=== PATIENT | female | born 1965 | race Caucasian/White ===

== ENCOUNTER 2017-01-03 23:00 | Observation (INO) | payer OTHER ==
--- NOTE | ~2017-01-03 | HP ---
History And Physical [facility] [address] [place]. [address] NAME: EMPERATRIZ BUENROSTRO : 67 STATUS : REG ER PAT#: [id number] AGE: 51 ADM/REG DATE : 01/03/17 MR#: [id number] REPORT SERV DATE: 01/04/17 DICTATED BY: CHEN GOMEZ DATE: 01/04/17 REPORT STATUS : Draft TRANSCRIBED BY: MODMerlyn DATE: 01/04/17 DATE OF ADMISSION: 01/03/2017 POINT OF ENTRY: [facility] Emergency Department. CHIEF COMPLAINT: Double vision. HISTORY OF PRESENT ILLNESS: Ms Buenrostro is a 51-year-old female with a history of morbid obesity, hypertension, hyperlipidemia, pxr-svqdxac-jqqavlqpc diabetes mellitus type 2 as well as obstructive sleep apnea and obesity hypoventilation syndrome on BiPAP therapy, who presents to the emergency department today with acute onset of blurry vision and diplopia. The patient states she was in her usual state of health until today when all day she felt cold, but there were no other specific complaints including fevers, night sweats, or chills. Her sensation of coldness resolved as the day progressed, and she had been out to [employer] shopping with her family members. Upon exiting [employer] at approximately 8:30 to 9:00 p.m., she noted the acute onset of blurry vision specifically diplopia. The patient states that she has very blurry vision with objects that are very close, the further away the object is the more defined it becomes and there are always two images of each object. This complaint remain the same whether or not she is using binocular vision or monocular vision of either left or right. Upward and downward gaze, lateral gaze does not seem to change her symptoms. The patient has no other neurologic symptoms including dysarthria, dysphagia, facial droop, weakness, numbness or tingling of her extremities. Initial evaluation in the emergency department is notable for a CT scan of the brain that was unremarkable, but was somewhat limited by the patient motion. Labs otherwise unremarkable. EKG and chest x-ray were clear. She was subsequently admitted to the Hospitalist Service for further evaluation and management. The patient denies any troubles with diplopia or blurry vision in the past. She recently saw an electronic lab technician and is being fitted for corrective lenses, but other than having some mild impaired visual acuity reportedly the vision exam was reportedly unremarkable. She denies any other previous complaints such as fevers, night sweats, chills, cough, sputum production, shortness of breath, chest pain, abdominal pain, nausea, vomiting, diarrhea, constipation, dysuria, lower extremity edema, melena, hematochezia, or hemoptysis. REVIEW OF SYSTEMS: Comprehensive review of systems otherwise negative unless listed in history of present illness. PREVIOUS MEDICAL HISTORY: 1. Morbid obesity. 2. Obesity hypoventilation syndrome and obstructive sleep apnea, on nocturnal BiPAP therapy. 3. Hypertension. History And Physical [address] [place]. [address] NAME: EMPERATRIZ BUENROSTRO : 67 STATUS : REG ER PAT#: [id number] AGE: 51 ADM/REG DATE : 01/03/17 MR#: [id number] REPORT SERV DATE: 01/04/17 DICTATED BY: CHEN GOMEZ DATE: 01/04/17 REPORT STATUS : Draft TRANSCRIBED BY: VALDEMAR DATE: 01/04/17 4. Hyperlipidemia. 5. Xjg-ynphxip-qvydbpxbv diabetes mellitus type 2. 6. Diverticulosis. 7. Congenital malignant teratoma status post resection. 8. Osteoarthritis. 9. Psoriasis. 10.Nonobstructive coronary artery disease. 11.Chronic diastolic congestive heart failure. 12.Chronic hypoxic respiratory failure. SURGICAL HISTORY: 1. Left upper lobe lobectomy for teratoma resection. 2. Tubal ligation. 3. Appendectomy. 4. Bladder repair. 5. Uterine cystectomy. 6. Umbilical hernia repair x2. 7. Rectocele repair. ALLERGIES: NO KNOWN DRUG ALLERGIES. HOME MEDICATIONS: Pending at the time of dictation. SOCIAL HISTORY: Denies any tobacco, alcohol, or illicits. She is currently on disability. FAMILY MEDICAL HISTORY: Mother with coronary artery disease, diabetes, hypertension. Father with coronary artery disease, diabetes, hypertension. Siblings with coronary artery disease. LABS AND IMAGIN. White count 6.9, hemoglobin 14.1, hematocrit 44.1, and platelet count 282. INR 1.1. 2. Sodium is 142, potassium 3.9, chloride 108, carbon dioxide 25, BUN 29, creatinine 0.70, glucose is 140, calcium is 9.0, protein is 7.5, albumin is 3.3, bilirubin is 0.3, ALT is 41, AST 19, and alkaline phosphatase is 151. 3. EKG per my review shows normal sinus rhythm with no evidence of any acute ischemia or infarction. 4. Chest x-ray per my review shows an exam limited by the patient's body habitus, but otherwise no acute cardiopulmonary abnormality. 5. CT scan of the brain is negative, but evaluation of the posterior fossa limited by the patient's motion. PHYSICAL EXAMINATION: VITAL SIGNS: Temperature is 97.2 degrees Fahrenheit, pulse is 94, respirations 16, saturating 95% on room air, and blood pressure 170/79. On recheck, blood pressure is now 130/60, pulse of 88, and saturating 98% on room air. GENERAL: The patient is awake and alert. She is a morbidly obese female in no acute distress. History And Physical [address] [address] NAME: EMPERATRIZ BUENROSTRO : 67 STATUS : REG ER PAT#: [id number] AGE: 51 ADM/REG DATE : 01/03/17 MR#: [id number] REPORT SERV DATE: 01/04/17 DICTATED BY: CHEN GOMEZ DATE: 01/04/17 REPORT STATUS : Draft TRANSCRIBED BY: VALDEMAR DATE: 01/04/17 HEENT: Atraumatic and normocephalic. Moist mucous membranes. Pupils equal, round, reactive to light and accommodation. Extraocular eye movements intact. No scleral icterus. NECK: No jugular venous distention. No carotid bruits. CARDIAC: Regular rate and rhythm. No murmurs, rubs, or gallops. Normal S1. Normal S2. LUNGS: Clear to auscultation bilaterally. No wheezes, rhonchi, or crackles. ABDOMEN: Obese, soft, nontender, and nondistended with good bowel sounds. No rebound, guarding, or rigidity. EXTREMITIES: Warm and perfused. No cyanosis, clubbing, or edema. SKIN: Warm and dry. PSYCH: Affect appropriate. NEURO: Alert and oriented x3. Cranial nerves 2 through 12 grossly intact. Speech is normal. Gait is not assessed. The patient's visual acuity was assessed in the ER, it was 20/40 both eyes and binocular vision. ASSESSMENT AND PLAN: Ms Buenrostro is a 51-year-old female who presents with acute onset of blurry vision and diplopia concerning for possible cerebrovascular accident versus transient ischemic attack. PROBLEM LIST: 1. Blurry vision and diplopia. Concern for possible CVA versus TIA. 2. Morbid obesity. 3. Obesity hypoventilation syndrome and obstructive sleep apnea, on BiPAP therapy. 4. Aaq-ormankt-yaebxvjcs diabetes mellitus type 2. 5. Hypertension. 6. Hyperlipidemia. PLAN: 1. Blurry vision and diplopia concerning for CVA versus TIA. We will admit the patient to the Hospitalist Service. Consult Neurology for assistance. Check MRI/MRA as well as echocardiogram. Place the patient on aspirin as well as a high-dose statin. 2. WILLA and OHS, on BiPAP. The patient did not bring her BiPAP with her. She does not know her settings. We will place the patient on a BiPAP at night. 3. Cji-qsowqng-lzrktjiva diabetes mellitus type 2. Place the patient on level 2 insulin sliding scale, and check a hemoglobin A1c. 4. Hypertension and hyperlipidemia. Continue the patient's home medications once confirmed. 5. DVT prophylaxis. Lovenox subcu. CODE STATUS: The patient wished to be full code. KAYLEEN/VALDEMAR Chen Gomez MD History And Physical [address] [address] NAME: EMPERATRIZ BUENROSTRO : 67 STATUS : REG ER PAT#: [id number] AGE: 51 ADM/REG DATE : 01/03/17 MR#: [id number] REPORT SERV DATE: 01/04/17 DICTATED BY: CHEN GOMEZ DATE: 01/04/17 REPORT STATUS : Draft TRANSCRIBED BY: HENRIETTAL DATE: 01/04/17 / [id number] CC: Tam Santana M.D.
--- NOTE | ~2017-01-03 | DS ---
Discharge Summary [facility] [address] [place]. [address] NAME: EMPERATRIZ MADERA : 67 STATUS : DIS Agata PAT#: [id number] AGE: 51 ADM/REG DATE : 01/04/17 MR#: [id number] REPORT SERV DATE: 01/06/17 DICTATED BY: JR. DIOR WILLIAM JOHN DATE: 01/05/17 REPORT STATUS : Draft TRANSCRIBED BY: VALDEMAR DATE: 01/05/17 ADMISSION DATE: 01/04/2017 DISCHARGE DATE: 01/05/2017 DISCHARGE DIAGNOSES: 1. Monocular diplopia with blurred vision, thought to be secondary ophthalmologic issue per Neurology. 2. Diabetes mellitus type 2. 3. Morbid obesity with a body mass index of 65. 4. Obesity-related hypoventilation syndrome. 5. Obstructive sleep apnea. 6. Non-insulin requiring diabetes mellitus without known complications. 7. Hypertension. 8. Hyperlipidemia. 9. B12 deficiency. OPERATIONS, PROCEDURES, AND TREATMENTS: Include: 1. Echocardiogram done on 01/05/2017, which showed normal left ventricular size and function. Ejection fraction of 55% to 60%. There was normal right ventricular size and function. No significant valvular abnormalities. 2. MRI of the brain showed no acute findings. There were small focal areas of gliosis. 3. MRA of the neck and head was normal. 4. CT of the brain done on 01/03/2017 was unremarkable. 5. Chest x-ray done on 01/03/2017 showed pulmonary vascular congestion similar to prior study. CONSULTING PHYSICIAN: Includes Inpatient Neurology Service. DISCHARGE MEDICATIONS: Include: 1. Aspirin 325 mg orally daily. 2. Mobic 7.5 mg orally twice a day. 3. Lipitor 80 mg orally daily. 4. Vitamin B12, 1000 mcg IM on 01/06/2017, 01/07/2017, and 01/13/2017; then weekly x4, then monthly. 5. Folate 1 mg orally daily. 6. Lasix 20 mg orally daily and p.r.n. for edema. 7. Lisinopril 5 mg orally daily. 8. Metoprolol 25 mg orally twice a day. 9. Potassium chloride 10 mEq orally daily. 10.Metformin 500 mg orally twice a day. 11.Multivitamin tablet orally daily. 12.Vitamin B complex one tablet orally daily. 13.Garlic pqnf-nvg-wxynacr. 14.Methotrexate 17.5 mg orally every seven days. 15.Combivent inhaled as needed. 16.Albuterol metered-dose inhaler every four hours as needed. Discharge Summary [facility] [id number] [place]. [address] NAME: EMPERATRIZ MADERA : 67 STATUS : DIS Agata PAT#: [id number] AGE: 51 ADM/REG DATE : 01/04/17 MR#: [id number] REPORT SERV DATE: 01/06/17 DICTATED BY: JR. DIOR WILLIAM JOHN DATE: 01/05/17 REPORT STATUS : Draft TRANSCRIBED BY: VALDEMAR DATE: 01/05/17 HOSPITAL COURSE: The patient is a 51-year-old morbidly obese, female, who presented to [facility] Emergency Room on 01/03/2017 with complaint of acute-onset blurred vision with diplopia. She said she was in her usual state of health without complaints. She went to [facility] with her family members. Upon exiting at about 8:30-9 p.m., she developed sudden-onset blurred vision, specifically diplopia. She says she had blurred vision with very close vision; however, the finding of diplopia and blurred vision to distance was new. She presented to the emergency room for further help. On initial exam, her temperature was 97.2, heart rate 94, respiratory rate 16, blood pressure 170/79. Neurologic exam was unremarkable. CT and chest x-ray: Detailed above. The patient was admitted to the Clinical Decision Unit for blurred vision/diplopia. She was seen in consultation by Neurology, where an MRI of the brain and MRA of the head and neck were unremarkable. She also had an echocardiogram which was unremarkable. The patient was therefore started on high-intensity statin medication as well as aspirin. Further workup by Neurology led to the conclusion this is likely a primary ophthalmologic issue. Recommendations for outpatient followup with Ophthalmology next available. Regarding the patient's B12 deficiency, she got 1000 mcg of IM, vitamin B12 twice in the hospital. She has a friend who can give it at home, and she will get another 1000 mcg IM on 01/06/2017, 01/07/2017, and then 01/13/2017. She will follow up with her primary care physician, Dr. Santana after that followup issues to include: 1. Follow up with Ophthalmology. 2. Follow up with Dr. Santana. We need to continue her vitamin B12. This discharge took 40 minutes for patient's encounter, coordination of care, and documentation. DIET: ADA. ACTIVITY: As tolerated For discharge exam and laboratory, please see daily progress note. ADE/VALDEMAR Enrique Dior Jr, MD / [id number] CC: Enrique Dior Jr, MD Discharge Summary [address] [address] NAME: EMPERATRIZ MADERA : 67 STATUS : DIS Agata PAT#: [id number] AGE: 51 ADM/REG DATE : 01/04/17 MR#: [id number] REPORT SERV DATE: 01/06/17 DICTATED BY: JR. DIOR WILLIAM JOHN DATE: 01/05/17 REPORT STATUS : Draft TRANSCRIBED BY: VALDEMAR DATE: 01/05/17 Luis Carlos Santana M.D.
--- NOTE | ~2017-01-03 | CN ---
Consultation Report [facility] [address] [place]. [address] NAME: EMPERATRIZ MADERA : 67 STATUS : ADM Agata PAT#: [id number] AGE: 51 ADM/REG DATE : 01/04/17 MR#: [id number] REPORT SERV DATE: 01/04/17 DICTATED BY: HALEY MELGAR DATE: 01/04/17 REPORT STATUS : Draft TRANSCRIBED BY: MODMerlyn DATE: 01/04/17 NEUROLOGY CONSULTATION DATE OF CONSULTATION: 01/04/2017 REASON FOR CONSULTATION: Possible stroke, double vision. HOSPITALIST: Dedrick Thompson M.D. HISTORY OF PRESENT ILLNESS: The patient is a 51-year-old female who started to feel cold yesterday morning at approximately 1000 hours. She states that she was cold all over and sat on the couch or in the bed most of the day, covered in a blanket. She denied any chilling or any hot flashes. She was not running a temperature. She even went onto mention that everyone else was "hot around her." At approximately 1830 hours, she suddenly was not cold anymore. Her mentioned that since she has sat in bed all day he thought it would be good for her to get out and spend some money. So they went to [employer]. She got up off the couch and walked outside. This happened at approximately 2030 hours. She suddenly could not read the print on the side of her van. It was blurred and she saw "double." She knew what the message on the side of the van said but just could not read it. She thought maybe she was having difficulty with the words that she went from inside to outside. However, she rubbed her eyes and blinked and her vision did not clear. She noticed that her vision "was blurred" but when she stood back she definitely had double vision. She noticed her double vision was more pronounced when looking to the left and was less pronounced when looking to the right. When she covered one eye, she still had double vision. She denied any weakness, numbness, slurred speech, confusion or ataxia. When questioned extensively throughout the interview, the patient mentioned that approximately a year ago she had some difficulty swallowing. She also mentioned that she has excessive secretions at times and has weakness in the upper extremities which is noticeable when she tries to do her hair. PAST MEDICAL HISTORY: Morbid obesity, hypertension, hyperlipidemia, diabetes mellitus type 2, obstructive sleep apnea, hypoventilation syndrome, diverticulosis, congenital malignant teratoma, osteoarthritis, psoriasis, coronary artery disease, chronic diastolic heart failure, chronic hypoxemic respiratory failure. PAST SURGICAL HISTORY: Left upper lobectomy for teratoma resection, tubal ligation, appendectomy, bladder repair, uterine cystoscopy, umbilical hernia repair x2, and rectocele repair. HOME MEDICATIONS: Albuterol MDI 1-2 puffs every four hours p.r.n., albuterol inhaler solution p.r.n., vitamin B complex, folic acid 1 mg daily, Lasix 20 mg daily and p.r.n. Combivent inhaler, Mobic 7.5 mg b.i.d., Glucophage 500 mg b.i.d., methotrexate 17.5 mg weekly, Lopressor 25 mg b.i.d., multivitamin daily, garlic capsule daily. Consultation Report [address] [address] NAME: EMPERATRIZ MADERA : 67 STATUS : ADM Agata PAT#: [id number] AGE: 51 ADM/REG DATE : 01/04/17 MR#: [id number] REPORT SERV DATE: 01/04/17 DICTATED BY: HALEY MELGAR DATE: 01/04/17 REPORT STATUS : Draft TRANSCRIBED BY: VALDEMAR DATE: 01/04/17 ALLERGIES: NONE. SOCIAL HISTORY: The patient is . She has four biologic children and one adopted child. She is on disability. She does not smoke, drink alcohol, or use illicit's. FAMILY HISTORY: Her mother is alive. She suffers from coronary artery disease, diabetes, and hypertension. Her dad is alive. He suffers from coronary artery disease, diabetes, and hypertension, and she has one brother and two sisters. REVIEW OF SYSTEMS: For pertinent positives, see HPI. PHYSICAL EXAMINATION: VITAL SIGNS: The patient is a 51-year-old female who stands 5 feet 2 inches tall and weighs 354 pounds. She is afebrile. Heart rate 88, respiratory rate 20, O2 saturations on room air 95%, blood pressure 130/60. NEURO: The patient is alert. She is oriented x4. She is pleasant, communicates appropriately. HEENT: Pupils are 3 mm. They are reactive. EOMs are intact. The patient has diplopia with leftward gaze more so than rightward gaze. She reports it is horizontal. Diplopia is still present with binocular vision bilaterally. Funduscopic exam, positive red reflex bilaterally. No nicking, hemorrhaging, papillary edema. Venous pulsations noted bilaterally. Normal disc cup ratio. Other cranial nerves are intact. No pronator drift, tremor, asterixis, dysmetria, finger-to nose. No ataxia. Unable to perform [id number]. EXTREMITIES: Upper extremity strength is 5/5. Upper DTRs 1+ bilaterally. No reported sensory deficits. Lower extremity strength is 3/5 bilaterally. Patellar reflexes 1+ bilaterally. Plantar reflex is silent. No reported sensory deficits. NECK: No carotid bruits, JVD or thyromegaly. CHEST: Lung sounds diminished in the bases. CARDIAC: Somewhat diminished but regular rate and rhythm. DATA: CBC is normal. BMP normal but glucose is 140. Cholesterol values are mildly elevated. CT of the brain, no acute changes. Chest x-ray shows some pulmonary congestion. B12 level is 244. ASSESSMENT/PLAN: 1. Sudden onset of monocular diplopia, etiology unknown. The patient will undergo an MRI of the brain with and without gadolinium to rule out stroke or tumor, aneurysm or multiple sclerosis. An MRI of the head and neck will also be performed. Lab work will be obtained to rule out thyroid abnormalities and myasthenia. 2. Morbid obesity. 3. Diabetes mellitus type 2. 4. Hypertension. Consultation Report [address] [address] NAME: EMPERATRIZ MADERA : 67 STATUS : ADM Agata PAT#: [id number] AGE: 51 ADM/REG DATE : 01/04/17 MR#: [id number] REPORT SERV DATE: 01/04/17 DICTATED BY: HALEY MELGAR DATE: 01/04/17 REPORT STATUS : Draft TRANSCRIBED BY: VALDEMAR DATE: 01/04/17 5. Hyperlipidemia. 6. Obstructive sleep apnea. 7. B12 deficiency. The patient will be placed on B12 via IM injections. Deficiency is most likely due to chronic metformin therapy. Thank you again for including us in consultation. We will continue to follow with you. HANG/VALDEMAR Haley Melgar [facility] / [id number] CC: Dominique Quiñones M.D.
[~2017-01-03 23:00] MED LIST: ACET500CAP PO; ASAB PO; ASABAYER PO; CORTIZONE-101 % TOP; GLUCPH; LIPITOR40 PO; LOP25 PO; PRIN5 PO; PROAIR HFA INH
[2017-01-03 23:27] LABS: BASOPHILS 0.1 %; BASOPHILS ABSOLUTE 0.01 10/3/uL (0.0-0.16); EOSINOPHILS 1.9 %; EOSINOPHILS ABSOLUTE 0.13 10/3/uL (0.0-0.53); ER CBC TAT 0 Hrs 07 Mins; HEMATOCRIT 44.1 % (36.0-48.0); HEMOGLOBIN 14.1 g/dL (12.0-16.0); IMMATURE GRANULOCYTES 0.3 %; IMMATURE GRANULOCYTES ABSOLUTE 0.02 10/3/uL (0.0-0.11); LYMPHOCYTES 34.4 %; LYMPHOCYTES ABSOLUTE 2.36 10/3/uL (0.67-4.30); MEAN CORPUSCULAR HEMOGLOB 29.1 pg (26.0-34.0); MEAN CORPUSCULAR VOLUME 91.1 fL (80-100); MEAN PLATELET VOLUME 9.5 fL (9.2-13.0); MONOCYTES 7.3 %; NEUTROPHILS ABSOLUTE 3.85 10/3/uL (2.02-8.40); PLATELET COUNT 282 10/3/uL (150-400); RED CELL COUNT 4.84 10/6/uL (4.0-5.6); WHITE BLOOD CELLS 6.9 10/3/uL (4.5-10.5)
[2017-01-03 23:28] LABS: MANUAL DIFF NO %
[2017-01-03 23:33] LABS: INTERNATIONAL NORMAL RATI 1.1 UNITS (-); PROTIME (NOT ORD) 14.2 SEC (12.0-14.5)
[2017-01-03 23:34] LABS: PARTIAL THROMBO TIME 34.3 SEC (22.5-37.2)
[2017-01-03 23:41] LABS: A/G RATIO 0.8 (0.7-1.9); ALBUMIN 3.3 G/DL (3.5-5.0); CHLORIDE, SERUM 108 MMOL/L (96-112); GFR AFRICAN AMERICAN 117 ML/MIN (>=60); GFR NON AFRICAN AMERICAN 101 ML/MIN (>=60); GLOBULIN 4.2 G/DL (2.5-4.1); POTASSIUM, SERUM 3.9 MMOL/L (3.5-5.3); SGOT(AST) 19 U/L (5-40); SGPT(ALT) 41 U/L (5-65); SODIUM, SERUM 142 MMOL/L (135-148); TOTAL PROTEIN 7.5 G/DL (6.0-8.5); TROPONIN I <0.02 NG/ML (<0.05)
[2017-01-03 23:43] LABS: ALKALINE PHOSPHATASE 151 U/L (45-117); BUN (BLOOD UREA NITROGEN) 29 MG/DL (6-23); CO2 (CARBON DIOXIDE) 25 MMOL/L (24-34); GLUCOSE, SERUM 140 MG/DL (60-99); TOTAL BILIRUBIN 0.3 MG/DL (0-1.2)
[2017-01-04] MEDS ORDERED: LIPITOR40 PO (04:41)
[2017-01-04] MEDS ORDERED: KDUR10 PO ×2 (04:41→09:04)
[2017-01-04] MEDS ORDERED: OTC PSORIASIS CREAM PO (09:00)
[2017-01-04] MEDS ORDERED: CENTRUM PO (09:03)
[2017-01-04] MEDS ORDERED: VITAMIN B PO (09:03)
[2017-01-04] MEDS ORDERED: GARLIC OTC PO (09:04)
[2017-01-04] MEDS ORDERED: MTX2.5 PO (09:04)
[2017-01-04] MEDS ORDERED: LIPITOR80 MG PO (09:04)
[2017-01-04] MEDS ORDERED: MOBIC7.5 PO (09:04)
[2017-01-04] MEDS ORDERED: COMBIVENT RESPIM4 GM PO (09:05)
[2017-01-04] MEDS ORDERED: PROVHFA PO (09:05)
[2017-01-04] MEDS ORDERED: FOLIC PO (09:06)
[2017-01-04] MEDS ORDERED: L20 PO ×2 (09:06)
[2017-01-04] MEDS ORDERED: LOP25 PO (09:06)
[2017-01-04] MEDS ORDERED: PRIN5 PO (09:08)
[2017-01-04] MEDS ORDERED: ALBUTEROL5 INH (09:08)
[2017-01-04] MEDS ORDERED: GLUCPH PO (09:13)
[2017-01-04 09:31] LABS: BASOPHILS 0.2 %; BASOPHILS ABSOLUTE 0.01 10/3/uL (0.0-0.16); EOSINOPHILS 1.5 %; HEMATOCRIT 41.4 % (36.0-48.0); HEMOGLOBIN 13.2 g/dL (12.0-16.0); IMMATURE GRANULOCYTES 0.2 %; IMMATURE GRANULOCYTES ABSOLUTE 0.01 10/3/uL (0.0-0.11); LYMPHOCYTES 33.4 %; LYMPHOCYTES ABSOLUTE 2.18 10/3/uL (0.67-4.30); MEAN CORPUS HGB CONC 31.9 g/dL (32.0-36.0); MEAN CORPUSCULAR HEMOGLOB 28.6 pg (26.0-34.0); MEAN CORPUSCULAR VOLUME 89.8 fL (80-100); MEAN PLATELET VOLUME 9.7 fL (9.2-13.0); MONOCYTES 8.1 %; MONOCYTES ABSOLUTE 0.53 10/3/uL (0.21-1.20); NEUTROPHILS 56.6 %; NEUTROPHILS ABSOLUTE 3.69 10/3/uL (2.02-8.40); PLATELET COUNT 238 10/3/uL (150-400); RBC DISTRIBUTION WIDTH 14.4 % (12.0-16.0); RED CELL COUNT 4.61 10/6/uL (4.0-5.6); WHITE BLOOD CELLS 6.5 10/3/uL (4.5-10.5)
[2017-01-04 09:36] LABS: MANUAL DIFF NO %
[2017-01-04 09:42] LABS: INTERNATIONAL NORMAL RATI 1.1 UNITS (-); PARTIAL THROMBO TIME 32.2 SEC (22.5-37.2); PROTIME (NOT ORD) 14.4 SEC (12.0-14.5)
[2017-01-04 10:09] LABS: CHOL/HDL RATIO(NOT ORDER) 3.9 (0-5); CHOLESTEROL 134 MG/DL (< 200); CPK (IF ELEVATED MB BANDS) 60 U/L (0-200); FREE T4 1.07 NG/DL (0.76-1.46); HDL CHOLESTEROL 34 MG/DL (> 49); LDL CHOLESTEROL 79 MG/DL (< 130); NON-HDL CHOLESTEROL 100 MG/DL (< 160); TRIGLYCERIDE 106 MG/DL (< 150); TROPONIN I <0.02 NG/ML (<0.05)
[2017-01-04 14:39] LABS: WBC (NOT ORDERED) (RFLEX) 0 (0-5)
[2017-01-04 14:47] LABS: ASCORBIC ACID (UR NOT ORDER) NEG (NEG); BILIRUBIN, URINE NEGATIVE (NEG); KETONE, URINE NEGATIVE (NEG); LEUKOCYTE ESTERASE(NOT OR NEG (NEG)
[2017-01-04 17:53] LABS: CPK (IF ELEVATED MB BANDS) 74 U/L (0-200); TROPONIN I <0.02 NG/ML (<0.05)
[2017-01-05 02:10] LABS: CPK (IF ELEVATED MB BANDS) 68 U/L (0-200); TROPONIN I <0.02 NG/ML (<0.05)
[2017-01-05 09:33] LABS: CALCIUM, SERUM 9.1 MG/DL (8.5-10.4); CHLORIDE, SERUM 104 MMOL/L (96-112); CO2 (CARBON DIOXIDE) 26 MMOL/L (24-34); CREATININE 0.67 MG/DL (0.55-1.02); GFR AFRICAN AMERICAN 119 ML/MIN (>=60); GFR NON AFRICAN AMERICAN 102 ML/MIN (>=60); SODIUM, SERUM 140 MMOL/L (135-148)
[2017-01-05 09:34] LABS: BUN (BLOOD UREA NITROGEN) 19 MG/DL (6-23); GLUCOSE, SERUM 204 MG/DL (60-99)
[2017-01-05] MEDS ORDERED: ASA5GR PO (18:00)
[2017-01-05] MEDS ORDERED: B121000P IM ×3 (18:04→18:13)
[2017-01-05] MEDS ORDERED: VITD PO (18:20)
[2017-01-11 21:39] LABS: ACETYLCHOLINE RECEPT BLOCK AB <15 % (<15); ACETYLCHOLINE RECEPT MODUL AB 5 % (<32)
== END 2017-01-05 19:58 | disposition home or self-care (01) ==
LOC: ER 23:00 → 1SO 01-04 06:30
PROVIDERS: Emergency Medicine; Hospitalist; Internal Medicine
DX: H53.2 Diplopia (principal); E11.9 Type 2 diabetes mellitus without complications; I11.0 Hypertensive heart disease with heart failure; G47.33 Obstructive sleep apnea (adult) (pediatric); E78.5 Hyperlipidemia, unspecified; E53.8 Deficiency of other specified B group vitamins; M19.90 Unspecified osteoarthritis, unspecified site; I25.10 Atherosclerotic heart disease of native coronary artery without angina pectoris; I50.32 Chronic diastolic (congestive) heart failure; J96.11 Chronic respiratory failure with hypoxia; Z68.44 Body mass index [BMI] 60.0-69.9, adult; Z79.82 Long term (current) use of aspirin; Z79.899 Other long term (current) drug therapy; Z98.890 Other specified postprocedural states; Z98.51 Tubal ligation status; Z90.49 Acquired absence of other specified parts of digestive tract; Z83.3 Family history of diabetes mellitus; Z82.49 Family history of ischemic heart disease and other diseases of the circulatory system
CPT/HCPCS: 36415; 70450; 70544; 70548; 70551; 70553; 71010; 80048; 80053; 80061; 81001; 82140; 82306; 82533; 82550; 82607; 82746; 82962; 83036; 83519; 83735; 84439; 84443; 84484; 85025; 85610; 85730; 86850; 86900; 86901; 92610-GN; 93005; 96372; 97161-GP; 97165-GO; 99285; A9270-GY; A9577; C8929; G0378; Q9957